=== PATIENT | male | born 2000 | race Caucasian/White ===

== ENCOUNTER 2019-04-01 21:06 | Emergency (ER) | payer OTHER ==
[~2019-04-01] VITALS: Ht 182.9 cm; Wt 99.8 kg
--- NOTE | 2019-04-01 21:15 | ED.ADGEN ---
Adult General Chief Complaint Chief Complaint " I was playing foot. and go my Rt. hand crushed between two helmets. HPI HPI Patient is a 18 year old male who presents with above hx and complaints of Rt. hand injury. Pt. is right-hand dominant. Has obvious contusion to right hand. Distal capillary refill is equal to left hand. Does have obvious edema. Patient does have range of motion. He only has pain on stressing fourth and fifth finger right hand. Patient denies any other injury. Patient normally healthy. Patient up-to-date vaccinations. No history of travel. No history of significant ill contacts. Review of Systems Review of Systems Constitutional: Denies fever or chills [] Eyes: Denies change in visual acuity, redness, or eye pain [] HENT: Denies nasal congestion or sore throat [] Respiratory: Denies cough or shortness of breath [] Cardiovascular: No additional information not addressed in HPI [] GI: Denies abdominal pain, nausea, vomiting, bloody stools or diarrhea [] : Denies dysuria or hematuria [] Musculoskeletal: Denies back pain or joint pain []complaints of crush injury to right hand Integument: Denies rash or skin lesions [] Neurologic: Denies headache, focal weakness or sensory changes [] Endocrine: Denies polyuria or polydipsia [] All other systems were reviewed and found to be within normal limits, except as documented in this note. Family History Family History Noncontributory Current Medications Current Medications Current Medications Medications (Trade) Dose Ordered Sig/[facility] Start Time Stop Time Status Last Admin Dose Admin Hydrocodone Bitartrate/ Ibuprofen (Vicoprofen 7.5-200) 2 tab 1X ONCE 04/01/19 21:30 04/01/19 22:02 DC 04/01/19 22:07 2 TAB Allergies Allergies Allergies Coded Allergies Type Severity Reaction Last Updated Verified No Known Drug Allergies 04/01/19 No Physical Exam Physical Exam Constitutional: Well developed, well nourished, mild distress, non-toxic appearance. [] HENT: Normocephalic, atraumatic, bilateral external ears normal, oropharynx moist, no oral exudates, nose normal. [] Eyes: PERRLA, EOMI, conjunctiva normal, no discharge. [] Neck: Normal range of motion, no tenderness, supple, no stridor. [] Cardiovascular:Heart rate regular rhythm, no murmur [] Lungs & Thorax: Bilateral breath sounds clear to auscultation [] Abdomen: Bowel sounds normal, soft, no tenderness, no masses, no pulsatile masses. [] Skin: Warm, dry, no erythema, no rash. [] Back: No tenderness, no CVA tenderness. [] Extremities: Right Hand tenderness, no cyanosis, no clubbing, ROM intact, right hand edema. [] Neurologic: Alert and oriented X 3, normal motor function, normal sensory function, no focal deficits noted. [] Psychologic: Affect normal, judgement normal, mood normal. [] Current Patient Data Vital Signs Vital Signs Date Time Temp Pulse Resp B/P (MAP) Pulse Ox O2 Delivery O2 Flow Rate FiO2 04/01/19 22:00 98.3 91 16 96 EKG EKG [] Radiology/Procedures Radiology/Procedures Interpretation x-ray shows no obvious fracture or dislocation. There is some mild edema. There is a vein line on mid phalanx fourth finger. This area was not particularly tender on exam however.[] Course & Med Decision Making Course & Med Decision Making Pertinent Labs and Imaging studies reviewed. (See chart for details) Levy taped fourth and fifth finger. Distal neurovascular intact afterwards. Patient keep hand elevated. Rest. Ice packs as needed. Take [id number] Tylenol and ibuprofen. If continued problems with these fingers in 2 weeks would repeat x-ray to see if there is any callus formation. [] Final Impression Final Impression 1. Crush injury right hand[] Dragon Disclaimer Dragon Disclaimer This electronic medical record was generated, in whole or in part, using a voice recognition dictation system. Dragon Disclaimer This chart was dictated in whole or in part using Voice Recognition software in a busy, high-work load, and often noisy Emergency Department environment. It may contain unintended and wholly unrecognized errors or omissions. KIMO LINARES MD Apr 01, 2019 21:15
[2019-04-01] MEDS ORDERED: HYDROcodon/IBUPROFEN 7.5/200MG 1 TAB TABLET PO ONE (21:30)
--- NOTE | 2019-04-01 21:58 | RAD ---
Indication:Football injury. Fourth and fifth digit pain. TECHNIQUE: 3 views of right hand COMPARISON: None FINDINGS/ impression: No acute fracture or dislocation. No soft tissue swelling. Electronically signed by: Dakota Damian DO (04/01/2019 9:55 PM) [facility]
[2019-04-01 22:00] VITALS: BP 127/66
== END 2019-04-01 22:58 | disposition home or self-care (01) ==
LOC: ER 21:06
DX: S67.21XA Crushing injury of right hand, initial encounter (principal); W23.0XXA Caught, crushed, jammed, or pinched between moving objects, initial encounter; Y93.89 Activity, other specified; Y92.89 Other specified places as the place of occurrence of the external cause; Y99.8 Other external cause status
CPT/HCPCS: 73130; 99284